=== PATIENT | female | born 1990 | race Caucasian/White ===

== ENCOUNTER → 2020-02-09 14:24 | Outpatient (CLI) | payer BC, SELFPAY | PROVIDERS: Visit Provider Advanced Practice Midwife | DX: Z03.818 Encounter for observation for suspected exposure to other biological agents ruled out (principal); R51.9 Headache, unspecified; R09.81 Nasal congestion | CPT/HCPCS: 87275; 87276; U0003 ==

== ENCOUNTER → 2021-04-07 19:16 | Outpatient (CLI) | payer BC, SELFPAY ==
[2021-04-07 19:19] LABS: Adenovirus,PCR Not Detected (NotDetected); Bordetella Pertussis Not Detected (NotDetected); Chlamydophila Pneumoniae, PCR Not Detected (NotDetected); Coronavirus 19, PCR Not Detected (NotDetected); Coronavirus 229E Not Detected (NotDetected); Coronavirus NL63 Not Detected (NotDetected); Coronavirus OC43 Not Detected (NotDetected); Coronovirus HKU1,PCR Not Detected (NotDetected); Human Metapneumovirus Not Detected (NotDetected); Influenza A, PCR Not Detected (NotDetected); Influenza AH1, 2009 Not Detected (NotDetected); Influenza AH1, PCR Not Detected (NotDetected); Influenza AH3,PCR Not Detected (NotDetected); Influenza B, PCR Not Detected (NotDetected); Mycoplasma Pneumoniae, PCR Not Detected (NotDetected); Parainfluenza 1, PCR Not Detected (NotDetected); Parainfluenza 2, PCR Not Detected (NotDetected); Parainfluenza 3, PCR Not Detected (NotDetected); Parainfluenza 4, PCR Not Detected (NotDetected); Respiratory Syncytial Virus Not Detected (NotDetected)
[2021-04-07 22:01] LABS: Rhinovirus/Enterovirus Detected (NotDetected)
== END ==
PROVIDERS: Visit Provider Nurse Practitioner Family
DX: Z20.822 Contact with and (suspected) exposure to COVID-19 (principal); B34.1 Enterovirus infection, unspecified; R50.9 Fever, unspecified; R51.9 Headache, unspecified
CPT/HCPCS: 87581; 87632; 87798; C9803; U0003; U0005

== ENCOUNTER → 2021-05-06 09:19 | Outpatient (CLI) | payer BC, SELFPAY | PROVIDERS: Visit Provider Nurse Practitioner | DX: U07.1 COVID-19 (principal) | CPT/HCPCS: C9803; U0003; U0005 ==

== ENCOUNTER → 2021-05-12 15:51 | Outpatient (CLI) | payer BC, SELFPAY | PROVIDERS: Visit Provider Nurse Practitioner | DX: U07.1 COVID-19 (principal) | CPT/HCPCS: C9803; U0003; U0005 ==

== ENCOUNTER 2021-08-23 16:30 | Outpatient (RCR) | payer BC, SELFPAY ==
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
== END 2021-09-14 09:41 | disposition home or self-care (01) ==
LOC: PT.CARL 16:30
PROVIDERS: PCP Nurse Practitioner Family; Visit Provider Nurse Practitioner Family
DX: M25.50 Pain in unspecified joint (principal); M51.36 Other intervertebral disc degeneration, lumbar region
CPT/HCPCS: 97010; 97014; 97110; 97140; 97163; G0283

== ENCOUNTER 2024-07-15 13:05 | Outpatient (CLI) | payer BC, SELFPAY | END 2024-07-15 23:59 | disposition home or self-care (01) | LOC: RT 13:06 | PROVIDERS: PCP Nurse Practitioner Family; Visit Provider Nurse Practitioner Family | DX: R00.2 Palpitations (principal) | CPT/HCPCS: 93225; 93226 ==

== ENCOUNTER → 2024-08-11 10:05 | Outpatient (CLI) | payer BC, SELFPAY | LOC: SL 10:06 | PROVIDERS: PCP Nurse Practitioner Family; Visit Provider Nurse Practitioner Family | DX: G47.33 Obstructive sleep apnea (adult) (pediatric) (principal); R06.83 Snoring; G47.10 Hypersomnia, unspecified; E66.9 Obesity, unspecified; Z68.32 Body mass index [BMI] 32.0-32.9, adult | CPT/HCPCS: G0399 ==

== ENCOUNTER 2025-01-26 09:24 | Outpatient (CLI) | payer BC, SELFPAY ==
--- OUTSIDE RECORDS SUMMARY | 2025-01-26 09:28 | XMS_ITS | Encounter Summary ---
Author Organization [facility] Address [address] [place] [address] Care Team Providers Care Junior Systems Engineer Name Role Phone Carol Palomares LALIT Primary Care Provider [phone]- [phone] Reason for Referral * Consultation (Routine) - Authorized Specialty Diagnoses / Procedures Referred By Cindy bird Referred To Contact Gastroenterology Diagnoses Anemia, unspecified type Blood in stool Betty Amaro APRN [address] [address] Phone: tel: fax: Referral ID Status Reason Start Date Expiration Date Visits Requested Visits Authorized [id number] Authorized Specialty Services Required 08/15/2024 02/14/2026 1 1 Encounter Details Date Type Department Care Team (Late st Contact Info) Description 08/15/2024 Community Orders Community Practice [address] [place] [address] Betty Amaro APRN [address] [place] [address] Anemia, unspecified type (Primary Dx); Blood in stool Social History Tobacco Use Types Packs/Day Years Used Date Smoking Tobacco: Never Smokeless Tobacco: Never Alcohol Use Standard Drinks/Week Comments No 0 (1 standard drink = 0.6 oz pur e alcohol) PHQ-2 Answer Date Recorded Patient Health Questionnaire-2 Score 2 08/19/2021 Education Answer Date Recorded What is the highest level of school you have completed or the highest degree you have received? 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 Not on file Not on file Not on file documented as of this encounter Plan of Treatment Scheduled Referrals Name Type Priority Associated Diagnoses Order Schedule Ambulatory referral to Gastroenterology Outpatient Referral Routine Anemia, unspecified type Blood in stool Expected: 08/22/2024, Expires: 02/15/2026 documented as of this encounter Visit Diagnoses Diagnosis Anemia, unspecified type- Primary Blood in stool documented in this encounter Additional Health Concerns Assessment Noted Time A fall risk assessment has been complete d for the patient 08/19/2021 9:25 AM EDT A Body Mass Index follow-up plan has been documented for the patient 10/24/2023 4:45 PM EDT documented as of this encounter Care Teams Junior Systems Engineer Relationship Specialty Start Date End Date Carol Palomares APRN [address] [facility] [address] [facility] [address] [place] [address] PCP - General 06/14/21 documented as of this encounter
--- OUTSIDE RECORDS SUMMARY | 2025-01-26 09:28 | XMS_ITS | Encounter Summary ---
Author Organization [facility] Address [address] [place] [address] Care Team Providers Care Order Fulfillment Specialist Name Role Phone Carol Palomares APRN Primary Care Provider [phone]- [phone] Reason for Referral * Consultation (Routine) - Closed Specialty Diagnoses / Procedures Referred By Cindy bird Referred To Contact Gastroenterology Diagnoses Bloody stool Carol Palomares, HEALTH FACILITIES SURVEYOR [address] [address] Phone: tel: fax: Referral ID Status Reason Start Date Expiration Date V isits Requested Visits Authorized [id number] Closed Specialty Services Required 08/02/2021 02/01/2023 1 1 Encounter Details Date Type Department Care Team (Late st Contact Info) Description 08/02/2021 Community [facility] Community Practice [address] [place] [address] Carol Palomares, HEALTH FACILITIES SURVEYOR [address] [address] Bloody stool (Primary Dx) Social History Tobacco Use Types Packs/Day Years Used Date Smoking Tobacco: Never Smokeless Tobacco: Never Alcohol Use Standard Drinks/Week Comments No 0 (1 standard drink = 0.6 oz pur e alcohol) Education Answer Date Recorded What is the [...] 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 No / Unsure 07/07/2021 11:55 AM EDT documented as of this encounter Plan of Treatment Scheduled Referrals Name Type Priority Associated Diagnoses Order Schedule Ambulatory referral to Gastroenterology Outpatient Referral Routine Bloody stool Expected: 08/02/2021 (Approximate), Expires: 02/01/2023 documented as of this encounter Visit Diagnoses Diagnosis Bloody stool- Primary Blood in stool documented in this encounter Additional Health Concerns Assessment Noted Time A fall risk assessment has been complete d for the patient 07/08/2021 8:45 AM EDT documented as of this encounter Care Teams Order Fulfillment Specialist Relationship Specialty Start Date End Date Carol Palomares APRN [address] [facility] 36 [facility] [address] [place], [place] [id number] PCP - General 06/14/21 documented as of this encounter
--- OUTSIDE RECORDS SUMMARY | 2025-01-26 09:28 | XMS_ITS | Clinical Summary ---
Author Organization [facility] Address [address] [place] [address] Care Team Providers Care Environmental Professional Name Role Phone Carol Palomares LALIT Primary Care Provider +1- [phone] Allergies No known active allergies Medications * This document contains information received from the source organization and may not represent a complete record from that organization. fluticasone (Flonase) 50 MCG/ACT nasal spray if needed. 3 Active ketoconazole (NIZOral) 2 % shampoo 3 Active ketoconazole (NIZOral) 2 % cream Apply topically if needed. 3 Active cetirizine (ZyrTEC) 10 MG tablet Take by mouth if needed. 3 Active famotidine (Pepcid) 20 MG tablet 3 Active levocetirizine (Xyzal Allergy 24HR) 5 MG tablet Take 1 tablet (5 mg) by mouth 1 (one) time each day in the evening. Active ondansetron ODT (Zofran-ODT) 4 MG disintegrating tablet Take 1 tablet (4 mg) by mouth every 8 (eight) hours if needed for nausea or vomiting. 20 tablet 4 Active Active Problems Problem Noted Date Diagnosed Date Class 1 obesity due to exces s calories without serious comorbidity with body mass index (BMI) of 33.0 to 33.9 in adult 10/15/2023 Hypertrophy of both inferior nasal turbinates Obesity in 08/05/2020 Abnormal glucose 07/09/2020 Rectocele affecting 01/21/2020 Resolved Problems Problem Noted Date Diagnosed Date Resolved Date Chronic sinusitis 10/15/2023 01/04/2025 and not yet deliver ed in third trimester 09/25/2020 09/27/2020 Encounter for supervision of normal 02/10/2009/27/2020 Immunizations Immunization Administration Dates Next Due Hep A, Unspecified 2019,02/23/2018 Hep B, adult 01/02/2001,09/28/2000,08/29/2000 Influenza, Unspecified 02/03/2020,2018,02/08/2018,2015,02/02/2015 Influenza, injectable, quadr ivalent, preservative free 02/07/2023,12/27/2021,01/19/2021 MMR 08/29/2000,05/27/1990 Pfizer-[employer] Services (EPS) COVID-19 Vac cine (Purple Cap) 12+ 01/12/2021,12/17/2020 Tdap 07/09/2020,11/15/2013 Family History Medical History Relation Name Comments Hypertension Father Hypertension Mother Anesthesia problems Neg Hx Malig Hyperthermia Neg Hx Relation Name Status Comments Father Mother Social History Tobacco Use Types Packs/Day Years Used Date Smoking Tobacco: Never Smokeless Tobacco: Never Tobacco Cessation:Counseling Given: Not Answered Alcohol Use Standard Drinks/Week Comments No 0 [...] Industry Job Start Date Job End Date [employer] Not on file Not on file Not on file Last Filed Vital Signs Vital Sign Reading Time Taken Comments Blood Pressure 126/85 08/02/2024 11:43 PM EDT Pulse 73 08/02/2024 11:43 PM EDT Temperature 36.8 C (98.3 F) 08/02/2024 11:43 PM EDT Respiratory Rate 18 08/02/2024 4:02 PM EDT Oxygen Saturation 97% 08/02/2024 11:43 PM EDT Inhaled Oxygen Concentration - - Weight 105 kg (231 lb) 08/02/2024 5:54 PM EDT Height 177.8 cm (5' 10 ) 10/16/2023 6:07 AM EDT Body Mass Index 33.15 10/16/2023 6:07 AM EDT Plan of Treatment Health Maintenance Due Date Last Done Comments [facility]-/Child/Adol SDOH Screenings 1989 [facility]-Varicella Vaccines (1 of 2 - 13+ 2-dose series) 2002 [facility]- SDOH Screenings 2007 [facility]-Adult SDOH Screenings 2007 HPV Vaccines (1 - 3-dose SCDM series) 02/11/2016 [facility]-Depression Screening 08/19/2022 08/19/2021 [facility]-Pap Smear 12/18/2023 12/17/2020 [id number] Vaccine (3 - 2024- season) 2024 01/12/2021, 12/17/2020 [facility]-Influenza Vaccine (#1) 12/15/202402/07, 12/27/2021, 01/19/2021, Additional history exists [facility]-Cervical Cancer Screening 12/17/2025 [facility]-HPV/Cotest 12/17/2025 12/17/2020, 12/17/2020 [facility]-DTaP,Tdap,and Td Vaccines (3 - Td or Tdap) 07/09/2030 07/09/2020, 11/15/2013 [facility]-Zoster Vaccines (1 of 2) 2039 [facility]-Hepatitis B Vaccines Completed 001, 09/28/2000, 08/29/2000 [facility]-Hepatitis A Vaccines Aged Out 2019, 02/14 No longer eligible based on patient's age to complete this topic [facility]-HIV Screening Completed 2020 [facility]-Hepatitis C Screening Completed 2020 [facility]-Obesity Intervention Completed 024, 05/25/2023, 02/20/2023, Additional history exists [facility]-HIB Vaccines Aged Out No longer e ligible based on patient's age to complete this topic [facility]-IPV Vaccines Aged Out No longer e ligible based on patient's age to complete this topic [facility]-Pneumococcal Vaccine: Pediatrics (0 to 5 Years) and At-Risk Patients (6 to 49 Years) Aged Out No longer eligible based on patient's age to complete this topic [facility]-Rotavirus Vaccines Aged Out No lo nger eligible based on patient's age to complete this topic Procedures Procedure Name Priority Date/Time Associated Diagnosis Comments PAP TEST - CYTOLOGY Routine 12/17/2020 1 0:42 AM EDT Healthcare maintenance HEPATITIS C ANTIBODY W/REFLEX TO HCV QUANT PCR Routine 2020 12:36 PM EDT HIV 1/2 ANTIBODY/ANTIGEN SCREEN WITH REFLEX TO HIV I/II DIFFERENTIATION Routine 2020 12:36 PM EDT from Last 3 Months or Most Recently Relevant to Health Maintenance Results * Pap Test (12/17/2020 10:42 AM EDT) Case Report Cytology Case: [id number] Authorizing Provider: Adry Barbosa CNM Collected: 12/17/2020 1042 Ordering Location: [facility] Received: 12/21/2020 1118 First Screen: ALFREDO Valdovinos Specimen: ThinPrep Pap Test, Liquid-Based Cervical/Vaginal, CERVICAL/VAGINAL 12/27/2020 2:44 PM EDT [facility] Interpretation NEGATIVE FOR INTRAEPITHELIAL LESION OR MALIGNANCY 12/27/2020 2:44 PM EDT [facility] at 1444 EDT Specimen Adequacy Satisfactory for evaluation; endocervical/dean sformation zone component present. Slide scanned and imaged by [employer] System with manual review of all selected boateng. 12/27/2020 2:44 PM EDT [facility] Cervical cytology is a screening test primarily for squamous cancers and precursors and has associated false negative and positive results. New technologies such as liquid based sampling may decrease but will not eliminate all false negative results. Regular screening and follow-up of unexplained clinical signs and symptoms are recommended to minimize false negative results. Please see the ASCCP website (www.asccp.org)fo r followup recommendations. If HPV testing was requested, correlation with the results is suggested (please call Microbiology at [phone] for results). 12/27/2020 2:44 PM EDT [facility] Menstrual Status Post- 021 2:44 PM EDT [facility] Contraceptive History Not Applicable 12/27/2020 2:44 PM EDT [facility] Last Menstrual Period 11/16/2020 12/27/2020 2:44 PM EDT [facility] Screening Type Routine Screen 2020 2:44 PM EDT [facility] High Risk? No 12/27/2020 2:44 PM EDT [facility] HPV Testing Requested? Request HPV Testing Regardless of Pap Test Findings 12/27/2020 2:44 PM EDT [facility] Previous Cancer History No 12/27/2020 2:44 PM EDT [facility] Swab Vaginal and cervical cytologic material / Unknown 12/17/2020 10:42 AM EDT 12/21/2020 11:18 AM EDT Adry Barbosa APRN, DINORAH LAB CYTOLOGY ORDERABLE S Final Result Performing Organization Address City/[facility]/ZIP Co de Phone Number [facility] [address] [place] [address] * HIV 1 & 2 Antibody/Antigen Screen (2020 12:36 PM EDT) Pathologist [facility] HIV 1 Result NONREACTIVE Screening for HIV 1 and 2 antibodies is NONREACTIVE. No confirmatory testing is required. [facility] 2020 12:3 6 PM EDT 2020 5:25 PM EDT Lizette Nuñez APRN, CNM LAB BLOOD ORDERABLES Final Result [facility] * Hepatitis C Antibody (2020 12:36 PM EDT) Hepatitis C Antibody NEGATIVE Reference Range: Negative [facility] 2020 12:3 6 PM EDT 2020 5:25 PM EDT Lizette Nuñez APRN, DINORAH LAB BLOOD ORDERABLES Final Result [facility] from Last 3 Months or Most Recently Relevant to Health Maintenance Insurance ANTH Advance Directives * Full Code (Latest Code Status on File) Date Activated Date Inactivated Comments 09/25/2020 8:27 AM 09/27/2020 4:24 PM Question Answer Comments Patient has decision-making capacity? Yes Care Teams Environmental Professional Relationship Specialty Start Date End Date Carol Palomares APRN [address] [place] [address] PCP - General 06/14/21
--- OUTSIDE RECORDS SUMMARY | 2025-01-26 09:29 | XMS_ITS | Patient Health Record ---
Author Organization [facility] PE D NEELAM Address [address] [place] [address] Care Team Providers Care Property Site Manager Name Role Phone Betty Livingston Primary Care Provider Migration, Provider Unavailable Unavailable Allergies No Known Allergies Results Component Value Reference Range Notes TEST AUTHORIZATION Reviewed date:07/18/2024 02:50:18 PM Interpretation: Performing Lab:CB, [facility] [address], [facility] HealthNzxfAP[address] Mina Cortes Notes/Report: NON-FASTING; NON-FASTING; NON-FASTING; NON-FASTING; NON-FAST TEST NAME: IRON, TIBC AND FERRITIN PANEL TEST CODE: 5616SB CLIENT CONTACT: BETTY LIVINGSTON REPORT ALWAYS MESSAGE SIGNATURE The laboratory testing on this patient was verbally requested or confirmed by the ordering physician or his or her authorized sales representative meats after contact with an employee of [facility]. Federal regulations require that we maintain on file written authorization for all laboratory testing. Accordingly we are asking that the ordering physician or his or her authorized sales representative meats sign a copy of this report and promptly return it to the client account manager. Signature: COMMENT Please fax this signed form to [phone]. Please do not attempt to return this document by other methods. Documents will not be viewed by a sales representative meats. Please do not use this fax number for other service requests. TSH (899) Reviewed date:12/03/2024 12:26:28 PM Interpretation: Performing Lab:S[facility] [employer], [facility] HealthClrrME[address] Mina Cortes Notes/Report: NON-FASTING; NON-FASTING; NON-FASTING; NON-FASTING; NON-FAST TSH 1.41 Reference Range > or = 20 Years 0.40-4.50 Ranges First trimester 0.26-2.66 Second trimester 0.55-2.73 Third trimester 0.43-2.91 C-REACTIVE PROTEIN (4420) Reviewed date:12/03/2024 12:26:22 PM Interpretation: Performing Lab:[facility] [employer], [place] FfndTA[address] Mina Cortes Notes/Report: NON-FASTING; NON-FASTING; NON-FASTING; NON-FASTING; NON-FAST C-REACTIVE PROTEIN 8.9 <8.0 mg/L SED RATE BY MODIFIED WESTERG ARGENIS (809) Reviewed date:12/03/2024 12:18:35 PM Interpretation: Performing Lab:[facility] [employer], [facility] CenterTvlgQL[address] Mina Cortes Notes/Report: NON-FASTING; NON-FASTING; NON-FASTING; NON-FASTING; NON-FAST SED RATE BY MODIFIED WESTERGREN 17 < OR = 20 mm/h CBC (INCLUDES DIFF/PLT) (639 9) Reviewed date:08/15/2024 12:51:28 PM Interpretation: Performing Lab:[facility], [facility]edUuzwXA[address] Mina Cortes Notes/Report: NON-FASTING; NON-FASTING; NON-FASTING WHITE BLOOD CELL COUNT 6.7 3.8-10.8 Thousand/uL RED BLOOD CELL COUNT 5.27 3.80-5.10 Million/uL HEMOGLOBIN 11.6 11.7-15.5 g/dL HEMATOCRIT 39.6 35.0-45.0 % MCV 75.1 80.0-100.0 fL MCH 22.0 27.0-33.0 pg MCHC 29.3 32.0-36.0 g/dL For adults, a slight decrease in the calculated MCHC value (in the range of 30 to 32 g/dL) is most likely not clinically significant; however, it should be interpreted with caution in correlation with other red cell parameters and the patient's clinical condition. RDW 17.6 11.0-15.0 % PLATELET COUNT 332 140-400 Thousand/uL MPV 11.4 7.5-12.5 fL ABSOLUTE NEUTROPHILS [phone] cells/uL ABSOLUTE LYMPHOCYTES 7717 044-4004 cells/uL ABSOLUTE MONOCYTES 268 200-950 cells/uL ABSOLUTE EOSINOPHILS 201 15-500 cells/uL ABSOLUTE BASOPHILS 27 0-200 cells/uL NEUTROPHILS 69.8 LYMPHOCYTES 22.8 MONOCYTES 4.0 EOSINOPHILS 3.0 BASOPHILS 0.4 CBC (INCLUDES DIFF/PLT) (639 9) Reviewed date:12/03/2024 12:23:13 PM Interpretation: Performing Lab:CB, [facility] [address], [facility] HealthCbyvGI[address] Mina Cortes Notes/Report: NON-FASTING; NON-FASTING; NON-FASTING; NON-FASTING; NON-FAST WHITE BLOOD CELL COUNT 6.4 3.8-10.8 Thousand/uL RED BLOOD CELL COUNT 5.03 3.80-5.10 Million/uL HEMOGLOBIN 11.9 11.7-15.5 g/dL HEMATOCRIT 40.2 35.0-45.0 % MCV 79.9 80.0-100.0 fL MCH 23.7 27.0-33.0 pg MCHC 29.6 32.0-36.0 g/dL For adults, a slight decrease in the calculated MCHC value (in the range of 30 to 32 g/dL) is most likely interpreted with caution in correlation with other red cell parameters and the patient's clinical condition. not clinically significant; however, it should be RDW 14.5 11.0-15.0 % PLATELET COUNT 283 140-400 Thousand/uL MPV 11.0 7.5-12.5 fL ABSOLUTE NEUTROPHILS 4134 2279-3481 cells/uL ABSOLUTE LYMPHOCYTES 2831 920-9628 cells/uL ABSOLUTE MONOCYTES 339 200-950 cells/uL ABSOLUTE EOSINOPHILS 147 15-500 cells/uL ABSOLUTE BASOPHILS 32 0-200 cells/uL NEUTROPHILS 64.6 LYMPHOCYTES 27.3 MONOCYTES 5.3 EOSINOPHILS 2.3 BASOPHILS 0.5 IRON AND TOTAL IRON BINDING CAPACITY (7573) Reviewed date:12/03/2024 12:18:45 PM Interpretation: Performing Lab:SANG [facility] [employer], [place] OijyZV[address] Mina Cortes Notes/Report: NON-FASTING; NON-FASTING; NON-FASTING; NON-FASTING; NON-FAST IRON, TOTAL 35 40-190 mcg/dL IRON BINDING CAPACITY 402 250-450 mc g/dL (calc) % SATURATION 9 16-45 % (calc) COMPREHENSIVE METABOLIC PANE L (90624) Reviewed date:12/03/2024 12:25:21 PM Interpretation: Performing Lab:SANG [facility] [employer], QuantifeedOliiCB[address] Mina Cortes Notes/Report: NON-FASTING; NON-FASTING; NON-FASTING; NON-FASTING; NON-FAST GLUCOSE 85 65-99 mg/dL Fasting reference interval UREA NITROGEN (BUN) 14 7-25 mg/dL CREATININE 0.85 0.50-0.97 mg/dL EGFR 92 > OR = 60 mL/min/1.73m2 BUN/CREATININE RATIO SEE NOTE: 6-22 (calc) Not Reported: BUN and Creatinine are within reference range. SODIUM 141 135-146 mmol/L POTASSIUM 4.0 3.5-5.3 mmol/L CHLORIDE 104 98-110 mmol/L CARBON DIOXIDE 27 20-32 mmol/L CALCIUM 9.6 8.6-10.2 mg/dL PROTEIN, TOTAL 7.7 6.1-8.1 g/dL ALBUMIN 4.5 3.6-5.1 g/dL GLOBULIN 3.2 1.9-3.7 g/dL (calc) ALBUMIN/GLOBULIN RATIO 1.4 1.0-2.5 (calc) BILIRUBIN, TOTAL 0.3 0.2-1.2 mg/dL ALKALINE PHOSPHATASE 94 31-125 U/L AST 12 10-30 U/L ALT 14 6-29 U/L COMPREHENSIVE METABOLIC PANE L (92939) Reviewed date:08/15/2024 12:51:34 PM Interpretation: Performing Lab:S[facility] [employer] [facility], QuantifeedOforFA[address] Mina Cortes Notes/Report: NON-FASTING; NON-FASTING; NON-FASTING GLUCOSE 88 65-99 mg/dL Fasting referen ce interval UREA NITROGEN (BUN) 14 7-25 mg/dL CREATININE 0.82 0.50-0.97 mg/dL EGFR 96 > OR = 60 mL/min/1.73m2 BUN/CREATININE RATIO SEE NOTE: 6-22 (calc) Not Reported: BUN and Creatinine are within reference range. SODIUM 139 135-146 mmol/L POTASSIUM 4.3 3.5-5.3 mmol/L CHLORIDE 104 98-110 mmol/L CARBON DIOXIDE 25 20-32 mmol/L CALCIUM 9.7 8.6-10.2 mg/dL PROTEIN, TOTAL 8.2 6.1-8.1 g/dL ALBUMIN 4.7 3.6-5.1 g/dL GLOBULIN 3.5 1.9-3.7 g/dL (calc) ALBUMIN/GLOBULIN RATIO 1.3 1.0-2.5 (calc) BILIRUBIN, TOTAL 0.4 0.2-1.2 mg/dL ALKALINE PHOSPHATASE 95 31-125 U/L AST 15 10-30 U/L ALT 14 6-29 U/L IRON, TIBC AND FERRITIN PANE L (5616) Reviewed date:08/15/2024 12:51:22 PM Interpretation: Performing Lab:[facility] [employer], [employer] DirectJmycWU[address] Mina Cortes Notes/Report: NON-FASTING; NON-FASTING; NON-FASTING IRON, TOTAL 39 40-190 mcg/dL IRON BINDING CAPACITY 417 250-450 mc g/dL (calc) % SATURATION 9 16-45 % (calc) FERRITIN 12 16-154 ng/mL IRON, TIBC AND FERRITIN PANE L (5616) Reviewed date:07/18/2024 02:50:18 PM Interpretation: Performing Lab:SANG [address] [employer], [employer] DirectEbqzQW[address] Mina Cortes Notes/Report: NON-FASTING; NON-FASTING; NON-FASTING; NON-FASTING; NON-FAST IRON, TOTAL 20 40-190 mcg/dL IRON BINDING CAPACITY 444 250-450 mc g/dL (calc) % SATURATION 5 16-45 % (calc) FERRITIN 5 16-154 ng/mL MISAEL SCR, IFA, W/REFL TITER/P ATTERN/RHEUMATOID ARTHRITIS PANEL 1 (77986) Reviewed date:12/03/2024 12:18:52 PM Interpretation: Performing Lab:Debbie DOMÍNGUEZ-[facility] [address] BlShahbazCrafKE[address] Mina Cortes Notes/Report: NON-FASTING; NON-FASTING; NON-FASTING; NON-FASTING; NON-FAST MISAEL SCREEN, IFA NEGATIVE NEGATIVE MISAEL IFA is a first line screen for detecting the presence of up to approximately 150 autoantibodies in various autoimmune diseases. A negative MISAEL IFA result suggests an MISAEL-associated autoimmune disease is not present at this time, but is not definitive. If there is high clinical suspicion for Sjogren's syndrome, testing for anti-SS-A/Ro antibody should be considered. Anti-Sadaf-1 antibody should be considered for clinically suspected inflammatory myopathies. AC-0: Negative International Consensus on MISAEL Patterns (https://doi.org/10.1515/ iyfo-4127-8150) For additional information, please refer to http://education.C2FO/faq/HAN088 (This link is being provided for informational/ educational purposes only.) RHEUMATOID FACTOR <10 <14 IU/mL CYCLIC CITRULLINATED PEPTIDE (CCP) AB (IGG) <16 Reference Range Negative: <20 Weak Positive: 20-39 Moderate Positive: 40-59 Strong Positive: >59 INTERPRETATION 65-70%. There is no serologic evidence for rheumatoid arthritis. The RF and CCP tests each have a sensitivity for established rheumatoid arthritis of approximately THINPREP-TIS (REFL) (50193) Reviewed date:12/03/2024 12:18:40 PM Interpretation: Performing Lab:Debbie TOURE-[address], DmcckcnttxMO[address] Mina Cortes Notes/Report: NON-FASTING CLINICAL INFORMATION: Normal exam LMP: NONE GIVEN PREV. PAP: NONE GIVEN PREV. BX: NONE GIVEN SOURCE: Vagina, Cervix STATEMENT OF ADEQUACY: Satisfactory for evaluation. Endocervical/transformati on zone component absent. Age and/or menstrual status not provided INTERPRETATION/RESULT: Cytology Results: Negative for intraepithelial lesion or malignancy. COMMENT: This Pap test has been evaluated with the Aztec GroupPrep(R) Imaging System. M[employer] SALES: MXD, CT(ASCP) CT Screening location: [address] [address] CLIA:[id number] COMMENT EXPLANATORY NOTE: The Pap is a screening test for cervical cancer. It is not a diagnostic test and is subject to false negative and false positive results. It is most reliable when a satisfactory sample, regularly obtained, is submitted with relevant clinical findings and history, and when the Pap result is evaluated along with historic and current clinical information. VITAMIN D,25-OH,TOTAL,IA (17 306) Reviewed date:07/17/2024 01:29:11 PM Interpretation: Performing Lab:SANG [address] [facility], [place] SuspUP[address] Mina Cortes Notes/Report: NON-FASTING; NON-FASTING; NON-FASTING; NON-FASTING; NON-FAST VITAMIN D,25-OH,TOTAL,IA 21 30-100 ng/mL Vitamin D Status 25-OH Vitamin D: Deficiency: <20 ng/mL Insufficiency: 20 - 29 ng/mL Optimal: > or = 30 ng/mL For 25-OH Vitamin D testing on patients on D2-supplementation and patients for whom quantitation of D2 and D3 fractions is required, the QuestAssureD(TM) 25-OH VIT D, (D2,D3), LC/MS/MS is recommended: order code 75799 (patients >2yrs). See Note 1 Note 1 For additional information, please refer to http://education.C2FO/faq/KSK493 (This link is being provided for informational/ educational purposes only.) TSH (899) Reviewed date:07/17/2024 01:29:11 PM Interpretation: Performing Lab:SANG [address] [employer] [facility], [place] XqidAE[address] Mina Cortes Notes/Report: NON-FASTING; NON-FASTING; NON-FASTING; NON-FASTING; NON-FAST TSH 2.37 Reference Range > or = 20 Years 0.40-4.50 Ranges First trimester 0.26-2.66 Second trimester 0.55-2.73 Third trimester 0.43-2.91 VITAMIN B12 (927) Reviewed date:07/17/2024 01:29:11 PM Interpretation: Performing Lab:SANG [address], [employer] DirectHypqBZ[address] Mina Cortes Notes/Report: NON-FASTING; NON-FASTING; NON-FASTING; NON-FASTING; NON-FAST VITAMIN B12 926 612-0790 pg/mL Please Note: Although the reference range for vitamin B12 is 200-1100 pg/mL, it has been reported that between 5 and 10% of patients with values between 200 and 400 pg/mL may experience neuropsychiatric and hematologic abnormalities due to occult B12 deficiency; less than 1% of patients with values above 400 pg/mL will have symptoms. CBC (INCLUDES DIFF/PLT) (639 9) Reviewed date:07/17/2024 01:29:11 PM Interpretation: Performing Lab:SANG [facility], [employer] DirectLdmhUJ[address] Mina Cortes Notes/Report: NON-FASTING; NON-FASTING; NON-FASTING; NON-FASTING; NON-FAST WHITE BLOOD CELL COUNT 5.6 3.8-10.8 Thousand/uL RED BLOOD CELL COUNT 5.11 3.80-5.10 Million/uL HEMOGLOBIN 11.2 11.7-15.5 g/dL HEMATOCRIT 35.8 35.0-45.0 % MCV 70.1 80.0-100.0 fL MCH 21.9 27.0-33.0 pg MCHC 31.3 32.0-36.0 g/dL For adults, a slight decrease in the calculated MCHC value (in the range of 30 to 32 g/dL) is most likely not clinically significant; however, it should be interpreted with caution in correlation with other red cell parameters and the patient's clinical condition. RDW 15.5 11.0-15.0 % PLATELET COUNT 306 140-400 Thousand/uL MPV 11.6 7.5-12.5 fL ABSOLUTE NEUTROPHILS 3970 7191-0582 cells/uL ABSOLUTE LYMPHOCYTES 8193 948-0252 cells/uL ABSOLUTE MONOCYTES 426 200-950 cells/uL ABSOLUTE EOSINOPHILS 123 15-500 cells/uL ABSOLUTE BASOPHILS 22 0-200 cells/uL NEUTROPHILS 70.9 LYMPHOCYTES 18.9 MONOCYTES 7.6 EOSINOPHILS 2.2 BASOPHILS 0.4 MAGNESIUM (622) Reviewed date:07/18/2024 02:50:18 PM Interpretation: Performing Lab:SANG Com[address] [facility], [facility] CenterExmaAN[address] Mina Cortes Notes/Report: NON-FASTING; NON-FASTING; NON-FASTING; NON-FASTING; NON-FAST MAGNESIUM 2.2 1.5-2.5 mg/dL COMPREHENSIVE METABOLIC PANE L (34059) Reviewed date:07/18/2024 02:50:18 PM Interpretation: Performing Lab:CB, [facility] [facility], [facility] CenterQdpnST[address] Mina Cortes Notes/Report: NON-FASTING; NON-FASTING; NON-FASTING; NON-FASTING; NON-FAST GLUCOSE 99 65-99 mg/dL Fasting reference interval UREA NITROGEN (BUN) 11 7-25 mg/dL CREATININE 0.82 0.50-0.97 mg/dL EGFR 96 > OR = 60 mL/min/1.73m2 BUN/CREATININE RATIO SEE NOTE: 6-22 (calc) Not Reported: BUN and Creatinine are within reference range. SODIUM 140 135-146 mmol/L POTASSIUM 4.0 3.5-5.3 mmol/L CHLORIDE 104 98-110 mmol/L CARBON DIOXIDE 27 20-32 mmol/L CALCIUM 9.4 8.6-10.2 mg/dL PROTEIN, TOTAL 7.9 6.1-8.1 g/dL ALBUMIN 4.4 3.6-5.1 g/dL GLOBULIN 3.5 1.9-3.7 g/dL (calc) ALBUMIN/GLOBULIN RATIO 1.3 1.0-2.5 (calc) BILIRUBIN, TOTAL 0.3 0.2-1.2 mg/dL ALKALINE PHOSPHATASE 110 31-125 U/L AST 16 10-30 U/L ALT 13 6-29 U/L occult blood Reviewed date:08/15/2024 12:51:17 PM Interpretation:Positive Performing Lab: Notes/Report: Positive Holter Monitor, 48 hour Reviewed date:07/30/2024 10:06:15 AM Interpretation: Performing Lab: Notes/Report: Reason For Referral Reason Home sleep study Diagnosis 1 Snoring (R06.83) Referral Organization [facility] Referring Provider First Name Betty Referring Provider Last Name Nunu Referring Provider Speciality Family Pra ctice Referred Organization [facility] Referred Address [address] [address] [place], [place],[address], Referred Provider Specialty Sleep Study General Notes Maggy Gonzalez 2024 02:39:33 PM >sent to Kayla Borrero to precert at [facility] Referral Priority Routine Reason Referral to Gastro- positive occult blood Referral Organization [facility] Referring Provider First Name Betty Referring Provider Last Name Nunu Referring Provider [facility] ctice Referred Organization [facility] Referred Address [address] [place] [address] ,[place], [place],[address],[place] Referred Provider Specialty Gastroentero logy General Notes Maggy Gonzalez 2024 10:57:54 AM >sent to [facility] and Dr. Garnica, Maggy Gonzalez 09/15/2024 03:22:46 PM >sent again to [facility] Referral Priority Routine Reason Dr. Sly MOMIN Referral Organization [facility] Referring Provider First Name Betty Referring Provider Last Name Nunu Referring Provider [facility] ctice Referred Organization [facility] Referred Address [address] [facility] [address] [place], [place],[address],[place] Referred Provider Specialty Hematology/O ncology General Notes Maggy Gonzalez 2024 12:30:05 PM >Sent to [facility] Dr. Heart Referral Priority Routine Medications Medication SIG (Take, Route, Frequency, Duration) Notes Start Date End Date Status Ferrous Sulfate 325 (65 Fe) MG 1 tab(s) orally once a day; Duration: 30 days 07/18/2024 Active Social History Tobacco Use: Social History Observation Description Date Details (start date - stop date) Never Smoker NA - NA Smoking: Question Answer Notes Are you a: nonsmoker Problems Problem Type SNOMED Code ICD Code Onset Dates Problem Status W/U Status Risk Notes Problem Anxiety (24872865) Anxiety (F41.9) Active confi rmed Problem Vitamin D deficiency (06572932) Vitamin D deficiency (E55.9) Active confirmed Problem Psoriasis (0251640) Psoriasis (L40.9) Active confirmed Problem Body mass index 30.00 to 34.99 (309354705378295) BMI 31.0-31.9,adult (Z68.31) Active confirmed Problem BMI 30+ - obesity (590527233) BMI 32.0-32.9,adult (Z68.32) Active confirmed Problem Idiopathic sleep related non-obstructive alveolar hypoventilation (012782555) Nocturnal hypoxia (G47.34) Active confirmed Problem Iron deficiency anemia (73485262) Iron deficiency anemia, unspecified iron deficiency anemia type (D50.9) Active confirmed Problem Degeneration of lumbar intervertebral disc (64823864) Lumbar degenerative disc disease (M51.36) Active confirmed Problem Anxiety (05411429) Situational anxiety (F41.8) Active confirmed Problem Pain due to varicose veins of lower extremity (215229539) Varicose veins of both lower extremities with pain (I83.813) Active confirmed Vital Signs Heart Rate 82 /min 11/28/2024 Temperature 98 degrees Fahrenheit 11/28/2024 Blood pressure diastolic 80 mm Hg 11/28/2024 Height 70 in 11/28/2024 Blood pressure systolic 122 mm Hg 11/28/2024 Weight 224 lbs 11/28/2024 BMI 32.14 kg/m2 11/28/2024 Encounters Encounter Location Date Provider Diagnosis [facility] [address] [address] 07/19/2024 Provider Migration [facility] [address] [place] [address] 07/15/2024 Betty Nunu Vitamin D deficiency E55.9 ; Heart palpitations R00.2 ; Fatigue, unspecified type R53.83 ; Anxiety F41.9 and Snoring R06.83 [facility] [address] [address] 08/14/2024 Bettyphil Livingston Iron deficiency anemia, unspecified iron deficiency anemia type D50.9 ; Routine medical exam Z00.00 ; Dehydration E86.0 ; Anxiety F41.9 ; Fatigue, unspecified type R53.83 ; Elevated blood pressure reading R03.0 ; Nocturnal hypoxia G47.34 and BMI 32.0-32.9,adult Z68.32 [facility] [address] [place] [address] 08/15/2024 Betty Livingston Blood in stool K92.1 [facility] [address] [address] 11/28/2024 Betty Livingston Encounter for cervical Pap smear with pelvic exam Z01.419 ; Iron deficiency anemia, unspecified iron deficiency anemia type D50.9 ; Situational anxiety F41.8 ; Arthralgia of multiple joints M25.50 and Dizziness R42 [facility] [address] [place], [place] [address] 07/18/2024 Betty Nunu [facility] [address] [place] [address] 08/15/2024 Betty Nunu [facility] [address] [place] [address] 09/03/2024 Betty Nunu [facility] [address] [place], [place] [address] 11/06/2024 Betty Livingston Assessments Encounter Date Diagnosis (ICD Code) Assessment Notes Treatment Notes Treatment Clinical Notes Section Notes 07/15/2024 Vitamin D deficiency (ICD-10 - E55.9) 07/15/2024 Heart palpitations (ICD-10 - R00.2) EKG- NSR with nonspecific ST changes. Labs drawn to r/o anemia, e-lyte disturbance, diabetes, vit def, thyroid disease etc Holer monitor placed Symptoms occur while sleeping, concerning for BRANDON. Sleep study ordered Anxiety is exacerbating symptoms. FU in 2 weeks for annual wellness. Sooner return precautions discussed 08/14/2024 Routine medical exam (ICD-10 - Z00.00) Pap utd Tdap UTD Labs today to FU on MERRILL, dehydration 08/14/2024 Iron deficiency anemia, unspecified iron deficiency anemia type (ICD-10 - D50.9) Continue ferrous sulfate Return cards for occult blood testing x 3 If positive will refer to GI, if negative will refer to hematology. Low iron levels could be the cause of fatigue and dizziness 08/15/2024 Blood in stool (ICD-10 - K92.1) 11/28/2024 Iron deficiency anemia, unspecified iron deficiency anemia type (ICD-10 - D50.9) Will repeat iron levels and CBC. If remains deficient will consider hematology referral to discuss if iron infusions may help with her symptoms 11/28/2024 Encounter for cervical Pap smear with pelvic exam (ICD-10 - Z01.419) Rectocele on exam, otherwise normal. Specimens obtained and sent to lab for evaluation 11/28/2024 Situational anxiety (ICD-10 - F41.8) At baseline 07/15/2024 Fatigue, unspecified type (ICD-10 - R53.83) 08/14/2024 Dehydration (ICD-10 - E86.0) Increase oral fluid intake CMP today to confirm stability 08/14/2024 Anxiety (ICD-10 - F41.9) At baseline 07/15/2024 Anxiety (ICD-10 - F41.9) 11/28/2024 Arthralgia of multiple joints (ICD-10 - M25.50) Inflammatory work-up added 11/28/2024 Dizziness (ICD-10 - R42) Labs, Holter, echo unremarkable with the exception of MERRILL 08/14/2024 Fatigue, unspecified type (ICD-10 - R53.83) See above 07/15/2024 Snoring (ICD-10 - R06.83) 08/14/2024 Elevated blood pressure reading (ICD-10 - R03.0) Mild elevated today. Advised to monitor, FU if consistently > 135/85 08/14/2024 Nocturnal hypoxia (ICD-10 - G47.34) Recommend diet, exercise, weight loss and re-evaluate. 08/14/2024 BMI 32.0-32.9,adult (ICD-10 - Z68.32) See above Plan Of Treatment Pending Test Test Name Order Date Echocardiogram 06/10/2021 Physical Therapy 07/14/2021 M-Complete Blood Count Auto Diff 022 M-Erythrocyte Sedimentation Rate 022 M-Comprehensive Metabolic Panel 06/23/19 22 U-G-Qpmbugka Protein 06/22/2021 M-Thyroid Stimulating Hormone 06/22/2021 U-Wmtw-Aaodhrh Antibody Titer 06/22/2021 O-Ilql-Guybgc Citrullinated Pept M-RA Latex Turbid. 06/22/2021 M-HLA-B27 06/22/2021 CT Scan : Venogram Abdomen/Pelvis 2021 THINPREP PAP (REFL) (62364) 11/28/2024 Insurance Providers Payer Name Payer Address Payer Phone Subscriber Number Group Number Insured Name Patient Relationship to Insured Coverage Start Date Coverage End Date [facility] [address] [place] [address] [id number] Charisma Telles Self - patient is the insured Medical (General) History Medical History History ICD Code chronic back pain/herniated disc Surgical History Surgery Date(Month/Year) Tonsillectomy and Adenoidectomy wisdom teeth sinus surgery 10/2023 Colonscopy 10/29/2024 Hospitalization History Reason Date(Month/Year) Child - 09/2020
[2025-01-26] MEDS: ferumoxytoL 510 MG in 0.9 % SODIUM CHLORIDE 50 ML 268 MG IV (09:46)
[2025-01-26 09:55] VITALS: BP 129/64; PULSE 86; RESP 18; TEMP 36.4; O2SAT 100
[2025-01-26 10:15] VITALS: BP 124/68; PULSE 81
[2025-01-26] MEDS: SODIUM CHLORIDE 0.9% 10ML FLUSH SYRINGE 10 ML IV (10:15)
== END 2025-01-26 23:59 | disposition home or self-care (01) ==
LOC: INF 09:26
PROVIDERS: PCP Nurse Practitioner Family; Visit Provider Internal Medicine Medical Oncology
DX: D50.0 Iron deficiency anemia secondary to blood loss (chronic) (principal)
CPT/HCPCS: 96374; Q0138

== ENCOUNTER 2025-01-29 08:57 | Outpatient (CLI) | payer BC, SELFPAY ==
--- OUTSIDE RECORDS SUMMARY | 2024-07-19 17:30 | XMS_ITS ---
Author Organization [facility] Address [address] [facility] [address] [facility] [address] [place] [address] Care Team Providers Care Sail Finisher Hand Name Role Phone Betty Eddy Primary Care Provider [phone] Migration, Provider Unavailable Unavailable REASON FOR VISIT Multum To Medispan Conversion Encounter Medications Medication SIG (Take, Route, Frequency, Duration) Notes Start Date End Date Status Ferrous Sulfate 325 (65 Fe) MG 1 tab(s) orally once a day; Duration: 30 days 07/18/2024 Active Encounters Encounter Location Date Provider Diagnosis [facility] [address] [facility] [address] [facility] [address] [place] [address] 07/19/2024 Provider Migration Plan Of Treatment Medication Medication Name Sig Start Date Stop Date Notes Ferrous Sulfate 325 (65 Fe) MG 1 tab(s) orally once a day; Duration: 30 days 07/18/2024 Progress Notes * Charisma LARA BDOB:[birth year] (34 yo F)Acc No.[id number]:07/19/2024 Patient: Charisma MELENDEZ Provider: Raya oliveira Migration :1990 A ge:34 Y S ex:Female Date:07/19/2024 Address:[address] [place], [place] [address] [id number] Pcp:Betty Eddy Subjective: * Chief Complaints: * 1 . Multum To Medispan Conversion Encounter. * Medical History: Objective: * Vitals: Assessment: Plan: * Treatment: * * Electronic signature of Prov ider Migration on 01/29/2025 at 09:07 AM EDT Sign off status: Pending * Provider: Raya oliveira Migration Date: 0 07/19/2024 Generated for Kati feldman/Keerthi/Lowell on: 1 09:07 AM EDT
--- OUTSIDE RECORDS SUMMARY | 2025-01-29 09:07 | XMS_ITS | Encounter Summary ---
Author Organization [facility] Address [address] [place] [address] Care Team Providers Care Tube Coremaker Name Role Phone Carol Palomares APRN Primary Care Provider +1- [phone] Reason for Referral * Consultation (Routine) - Closed Specialty Diagnoses / Procedures Referred By Cindy bird Referred To Contact Gastroenterology Diagnoses Bloody stool Carol Palomares, SPECIALTY DEVELOPMENT CONSULTANT [address] [address] Phone: tel: fax: Referral ID Status Reason Start Date Expiration Date V isits Requested Visits Authorized [id number] Closed Specialty Services Required 08/02/2021 02/01/2023 1 1 Encounter Details Date Type Department Care Team (Late st Contact Info) Description 08/02/2021 Community [facility] Community Practice [address] [place] [address] Carol Palomares, SPECIALTY DEVELOPMENT CONSULTANT [address] [address] Bloody stool (Primary Dx) Social History Tobacco [...] 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
--- OUTSIDE RECORDS SUMMARY | 2025-01-29 09:07 | XMS_ITS | Encounter Summary ---
Author Organization [facility] Address [address] [place] [address] Care Team Providers Care Cost Consultant Name Role Phone Carol Palomares LALIT Primary Care Provider +1- [phone] Reason for Referral * Consultation (Routine) - Authorized Specialty Diagnoses / Procedures Referred By Cindy bird Referred To Contact Gastroenterology Diagnoses Anemia, unspecified type Blood in stool Betty Amaro APRN [address] [address] Phone: tel: fax: Referral ID Status Reason Start Date Expiration Date Visits Requested Visits Authorized [id number] Authorized Specialty Services Required 08/15/2024 02/14/2026 1 1 Encounter Details Date Type Department Care Team (Late st Contact Info) Description 08/15/2024 Community Orders Community Practice [address] [place] [address] Betty Amaro APRN [address] [place] [address] Anemia, unspecified type (Primary Dx); Blood in [...] 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
--- OUTSIDE RECORDS SUMMARY | 2025-01-29 09:07 | XMS_ITS | Clinical Summary ---
Author Organization 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 Not [...] Screening 08/19/2022 08/19/2021 [facility]-Pap Smear 12/18/2023 12/17/2020 HFT-PILLM-23 Vaccine (3 - 2024- season) 2024 01/12/2021, [...] 10:42 AM EDT) Case Report Cytology Case: [id number] Authorizing Provider: Adry Barbosa CNM Collected: 12/17/2020 1042 Ordering Location: [facility] Received: 12/21/2020 1118 First Screen: ALFREDO Valdovinos Specimen: ThinPrep Pap Test, Liquid-Based Cervical/Vaginal, CERVICAL/VAGINAL 12/27/2020 2:44 PM EDT [facility] Interpretation NEGATIVE FOR INTRAEPITHELIAL LESION OR MALIGNANCY 12/27/2020 2:44 PM EDT [facility] at 1444 EDT Specimen Adequacy Satisfactory for evaluation; endocervical/dean sformation zone component present. Slide scanned and imaged by [employer]PreCereScan Imaging System with manual review of all selected boateng. 12/27/2020 2:44 PM EDT [facility] Cervical cytology is a screening test [...] results is suggested (please call Microbiology at [phone] for results). 12/27/2020 2:44 PM EDT [facility] Menstrual Status Post- 021 2:44 PM EDT [facility] Contraceptive History Not Applicable 12/27/2020 2:44 PM EDT [facility] Last Menstrual Period 11/16/2020 12/27/2020 2:44 PM EDT [facility] Screening Type Routine Screen 2020 2:44 PM EDT [facility] High Risk? No 12/27/2020 2:44 PM EDT [facility] HPV Testing Requested? Request HPV Testing Regardless of Pap Test Findings 12/27/2020 2:44 PM EDT [facility] Previous Cancer History No 12/27/2020 2:44 PM EDT [facility] Swab Vaginal and cervical cytologic material / Unknown 12/17/2020 10:42 AM EDT 12/21/2020 11:18 AM EDT Adry Barbosa APRN, [facility] CYTOLOGY ORDERABLE S Final Result Performing Organization Address City/[facility]/ZIP Co de Phone Number [facility] [address] [place] [address] * HIV 1 & 2 Antibody/Antigen Screen (2020 12:36 PM EDT) Pathologist [facility] HIV 1 Result NONREACTIVE Screening for HIV [...] Patient has decision-making capacity? Yes Care Teams Horse Rider Relationship Specialty Start Date End Date Carol Palomares APRN [address] [place] [address] PCP - General 06/14/21
--- OUTSIDE RECORDS SUMMARY | 2025-01-29 09:08 | XMS_ITS | Patient Health Record ---
Author Organization [facility] Address [address] [place] [address] [place] [address] Care Team Providers Care Bindery Machine Feeder Offbearer Name Role Phone Anthonyclara Betty Primary Care Provider Migration, Provider Unavailable Unavailable Allergies No Known Allergies Results Component Value Reference Range Notes IRON, TIBC AND FERRITIN PANE L (5616) Reviewed date:08/15/2024 12:51:22 PM Interpretation: Performing Lab:SANG, [facility] [address], Home-AccountYleuNW[address] Mina Cortes Notes/Report: NON-FASTING; NON-FASTING; NON-FASTING IRON, TOTAL 39 40-190 mcg/dL IRON BINDING CAPACITY 417 250-450 mc g/dL (calc) % SATURATION 9 16-45 % (calc) FERRITIN 12 16-154 ng/mL COMPREHENSIVE METABOLIC PANE L (81958) Reviewed date:07/18/2024 02:50:18 PM Interpretation: Performing Lab:SANG, [employer] [address], Home-AccountYwowRM[address] Mina Cortes Notes/Report: NON-FASTING; NON-FASTING; NON-FASTING; NON-FASTING; [...] 16 10-30 U/L ALT 13 6-29 U/L MAGNESIUM (622) Reviewed date:07/18/2024 02:50:18 PM Interpretation: Performing Lab:SANG [employer]-[address], Home-AccountLrekJR[address] Mina Cortes Notes/Report: NON-FASTING; NON-FASTING; NON-FASTING; NON-FASTING; NON-FAST MAGNESIUM 2.2 1.5-2.5 mg/dL CBC (INCLUDES DIFF/PLT) (639 9) Reviewed date:07/17/2024 01:29:11 PM Interpretation: Performing Lab:SANG [employer] [facility], Biotie TherapiesFkxvVM[address] Mina Cortes Notes/Report: NON-FASTING; NON-FASTING; NON-FASTING; NON-FASTING; [...] MPV 11.6 7.5-12.5 fL ABSOLUTE NEUTROPHILS 3970 0513-2596 cells/uL ABSOLUTE LYMPHOCYTES 5248 548-8208 cells/uL ABSOLUTE MONOCYTES 426 200-950 cells/uL ABSOLUTE EOSINOPHILS 123 15-500 cells/uL ABSOLUTE BASOPHILS 22 0-200 cells/uL NEUTROPHILS 70.9 LYMPHOCYTES 18.9 MONOCYTES 7.6 EOSINOPHILS 2.2 BASOPHILS 0.4 CBC (INCLUDES DIFF/PLT) (639 9) Reviewed date:08/15/2024 12:51:28 PM Interpretation: Performing Lab:SANG, [employer] [facility] [address], [place] OealHH[address] Mina Cortes Notes/Report: NON-FASTING; NON-FASTING; NON-FASTING WHITE [...] MPV 11.4 7.5-12.5 fL ABSOLUTE NEUTROPHILS 4677 1577-4065 cells/uL ABSOLUTE LYMPHOCYTES 3700 663-6322 cells/uL ABSOLUTE MONOCYTES 268 200-950 cells/uL ABSOLUTE EOSINOPHILS 201 15-500 cells/uL ABSOLUTE BASOPHILS 27 0-200 cells/uL NEUTROPHILS 69.8 LYMPHOCYTES 22.8 MONOCYTES 4.0 EOSINOPHILS 3.0 BASOPHILS 0.4 VITAMIN B12 (927) Reviewed date:07/17/2024 01:29:11 PM Interpretation: Performing Lab:SANG, [facility] [address], Home-AccountYiroDH[address] Mina Cortes Notes/Report: NON-FASTING; NON-FASTING; NON-FASTING; NON-FASTING; NON-FAST VITAMIN B12 934 410-9432 pg/mL Please Note: Although the reference range for vitamin B12 is 200-1100 pg/mL, it has been reported that between 5 and 10% of patients with values between 200 and 400 pg/mL may experience neuropsychiatric and hematologic abnormalities due to occult B12 deficiency; less than 1% of patients with values above 400 pg/mL will have symptoms. TSH (899) Reviewed date:07/17/2024 01:29:11 PM Interpretation: Performing Lab:SANG [facility] [facility] SolutionsSaint [facility]ab[facility], [facility] Medical CenterCunjTS[address] Mina Cortes Notes/Report: NON-FASTING; NON-FASTING; NON-FASTING; NON-FASTING; NON-FAST TSH 2.37 Reference Range > or = 20 Years 0.40-4.50 Ranges First trimester 0.26-2.66 Second trimester 0.55-2.73 Third trimester 0.43-2.91 VITAMIN D,25-OH,TOTAL,IA (17 306) Reviewed date:07/17/2024 01:29:11 PM Interpretation: Performing Lab:SANG [employer] [address]fr[address] [facility], [place] LghhLD[address] Mina Cortes Notes/Report: NON-FASTING; NON-FASTING; NON-FASTING; NON-FASTING; [...] D, (D2,D3), LC/MS/MS is recommended: order code 62756 (patients >2yrs). See Note 1 Note 1 For additional information, please refer to http://education.Yedda/faq/LPD139 (This link is being provided for informational/ educational purposes only.) THINPREP-TIS (REFL) (75754) Reviewed date:12/03/2024 12:18:40 PM Interpretation: Performing Lab:Debbie TOURE-Evon Mustafa[address] Mina Cortes Notes/Report: NON-FASTING CLINICAL INFORMATION: Normal exam LMP: NONE GIVEN PREV. PAP: NONE GIVEN PREV. BX: NONE GIVEN SOURCE: Vagina, Cervix STATEMENT OF ADEQUACY: Satisfactory for evaluation. Endocervical/transformati on zone component absent. Age and/or menstrual status not provided INTERPRETATION/RESULT: Cytology Results: Negative for intraepithelial lesion or malignancy. COMMENT: This Pap test has been evaluated with the Phylogyp(R) Imaging System. CRM ARCHITECT: ALFREDO SMITH(ASCP) CT Screening location: [address] [address] CLIA:[id number] COMMENT EXPLANATORY NOTE: The Pap is a screening test for cervical cancer. It is not a diagnostic test and is subject to false negative and false positive results. It is most reliable when a satisfactory sample, regularly obtained, is submitted with relevant clinical findings and history, and when the Pap result is evaluated along with historic and current clinical information. occult blood Reviewed date:08/15/2024 12:51:17 PM Interpretation:Positive Performing Lab: Notes/Report: Positive Holter Monitor, 48 hour Reviewed date:07/30/2024 10:06:15 AM Interpretation: Performing Lab: Notes/Report: MISAEL SCR, IFA, W/REFL TITER/P ATTERN/RHEUMATOID ARTHRITIS PANEL 1 (35209) Reviewed date:12/03/2024 12:18:52 PM Interpretation: Performing Lab:CB, [facility] Vfxz5426 [facility], [facility] CenterQyupXZ[address] Mina Cortes Notes/Report: NON-FASTING; NON-FASTING; NON-FASTING; NON-FASTING; [...] Negative International Consensus on MISAEL Patterns (https://doi.org/10.1515/ tski-2079-3353) For additional information, please refer to http://education.Yedda/faq/ULF848 (This link is being provided for informational/ educational purposes only.) RHEUMATOID FACTOR <10 <14 IU/mL CYCLIC CITRULLINATED PEPTIDE (CCP) AB (IGG) <16 Reference Range Negative: <20 Weak Positive: 20-39 Moderate Positive: 40-59 Strong Positive: >59 INTERPRETATION There is no serologic evidence for rheumatoid arthritis. The RF and CCP tests each have a sensitivity for established rheumatoid arthritis of approximately 65-70%. IRON, TIBC AND FERRITIN PANE L (5616) Reviewed date:07/18/2024 02:50:18 PM Interpretation: Performing Lab:SANG [facility] [employer] Pro.comMaple Grove HospitalRwraRG[address] Mina Cortes Notes/Report: NON-FASTING; NON-FASTING; NON-FASTING; NON-FASTING; NON-FAST IRON, TOTAL 20 40-190 mcg/dL IRON BINDING CAPACITY 444 250-450 mc g/dL (calc) % SATURATION 5 16-45 % (calc) FERRITIN 5 16-154 ng/mL COMPREHENSIVE METABOLIC PANE L (51786) Reviewed date:08/15/2024 12:51:34 PM Interpretation: Performing Lab:SANG [employer] [facility] Zcop8197 InContext SolutionsChester County Hospital[address] Mina Cortes Notes/Report: NON-FASTING; NON-FASTING; NON-FASTING GLUCOSE 88 65-99 mg/dL Fasting reference interval UREA NITROGEN [...] 15 10-30 U/L ALT 14 6-29 U/L COMPREHENSIVE METABOLIC PANE L (81991) Reviewed date:12/03/2024 12:25:21 PM Interpretation: Performing Lab:SANG [facility] Institutee1355 FSIteChester County Hospital[address] Mina Cortes Notes/Report: NON-FASTING; NON-FASTING; NON-FASTING; NON-FASTING; [...] 12 10-30 U/L ALT 14 6-29 U/L IRON AND TOTAL IRON BINDING CAPACITY (7573) Reviewed date:12/03/2024 12:18:45 PM Interpretation: Performing Lab:SANG [facility] ITNorthfield City Hospitale1355 In[facility] SolutionsSaint [facility], [facility] CenterBvuzLB[address] Mnia Cortes Notes/Report: NON-FASTING; NON-FASTING; NON-FASTING; NON-FASTING; NON-FAST IRON, TOTAL 35 40-190 mcg/dL IRON BINDING CAPACITY 402 250-450 mc g/dL (calc) % SATURATION 9 16-45 % (calc) CBC (INCLUDES DIFF/PLT) (639 9) Reviewed date:12/03/2024 12:23:13 PM Interpretation: Performing Lab:SANG [employer]basno [address], [facility] Medical CenterGaqtSZ[address] Mina Cortes Notes/Report: NON-FASTING; NON-FASTING; NON-FASTING; NON-FASTING; [...] parameters and the patient's clinical condition. RDW 14.5 11.0-15.0 % PLATELET COUNT 283 140-400 Thousand/uL MPV 11.0 7.5-12.5 fL ABSOLUTE NEUTROPHILS 4134 5091-0504 cells/uL ABSOLUTE LYMPHOCYTES 7778 695-9190 cells/uL ABSOLUTE MONOCYTES 339 200-950 cells/uL ABSOLUTE EOSINOPHILS 147 15-500 cells/uL ABSOLUTE BASOPHILS 32 0-200 cells/uL NEUTROPHILS 64.6 LYMPHOCYTES 27.3 MONOCYTES 5.3 EOSINOPHILS 2.3 BASOPHILS 0.5 SED RATE BY MODIFIED RONAN MORE (809) Reviewed date:12/03/2024 12:18:35 PM Interpretation: Performing Lab:SANG [employer] [address], [facility] CenterKqfkKJ[address] Mina Cortes Notes/Report: NON-FASTING; NON-FASTING; NON-FASTING; NON-FASTING; NON-FAST SED RATE BY MODIFIED BILL 17 < OR = 20 mm/h C-REACTIVE PROTEIN (4420) Reviewed date:12/03/2024 12:26:22 PM Interpretation: Performing Lab:SANG [employer]no [address], [facility] CenterThrjDU[address] Mina Cortes Notes/Report: NON-FASTING; NON-FASTING; NON-FASTING; NON-FASTING; NON-FAST C-REACTIVE PROTEIN 8.9 <8.0 mg/L TSH (899) Reviewed date:12/03/2024 12:26:28 PM Interpretation: Performing Lab:SANG [employer] Objn4738 [facility] CenterPopulation Genetics TechnologiesRed Lake Indian [facility] RxkiZQ[address] Mina Cortes Notes/Report: NON-FASTING; NON-FASTING; NON-FASTING; NON-FASTING; NON-FAST TSH 1.41 Reference Range > or = 20 Years 0.40-4.50 Ranges First trimester 0.26-2.66 Second trimester 0.55-2.73 Third trimester 0.43-2.91 TEST AUTHORIZATION Reviewed date:07/18/2024 02:50:18 PM Interpretation: Performing Lab:SANG [facility] Lybt2994 [facility] CentermiriamRed Lake Indian [facility] OracJQ[address] Mina Cortes Notes/Report: NON-FASTING; NON-FASTING; NON-FASTING; NON-FASTING; NON-FAST TEST NAME: IRON, TIBC AND FERRITIN PANEL TEST CODE: 5616SB CLIENT CONTACT: BETTY LIVINGSTON REPORT ALWAYS MESSAGE SIGNATURE The laboratory testing on this patient was verbally requested or confirmed by the ordering physician or his or her authorized client representative after contact with an employee of [employer]. Federal regulations require that we maintain on file written authorization for all laboratory testing. Accordingly we are asking that the ordering physician or his or her authorized client representative sign a copy of this report and promptly return it to the client advocate. Signature: COMMENT Please fax this signed form to [phone]. Please do not attempt to return this document by other methods. Documents will not be viewed by a client representative. Please do not use this fax number for other service requests. Reason For Referral Reason Home sleep study Diagnosis 1 Snoring (R06.83) Referral Organization [facility] DESMOND Referring Provider First Name Betty Referring Provider Last Name Nunu Referring Provider [facility]ity [facility] Referred Organization [facility] Referred Address [address] [place] [address],[address],[place] Referred Provider Specialty Sleep Study General Notes Maggy Gonzalez 2024 02:39:33 PM >sent to Kayla Borrero to edgarert at [facility] Referral Priority Routine Reason Referral to Gastro- positive occult blood Referral Organization [facility] Referring Provider First Name Betty Referring Provider Last Name Nunu Referring Provider [facility] ctice Referred Organization [facility] Referred Address [address] [place] [address] ,[place], [place],[address],[place] Referred Provider Specialty Gastroentero logy General Notes Maggy Gonzalez 2024 10:57:54 AM >sent to [facility] and Dr. Garnica, Maggy Gonzalez 09/15/2024 03:22:46 PM >[facility] Referral Priority Routine Reason Dr. Sly MOMIN Referral Organization [facility] Referring Provider First Name Betty Referring Provider Last Name Nunu Referring Provider [facility] ctice Referred Organization [facility] Referred Address [address],[address],[place] Referred Provider Specialty Hematology/O ncology General Notes Maggy Gonzalez 2024 12:30:05 PM >Sent to [facility] Dr. Heart Referral Priority Routine Medications [...] Status W/U Status Risk Notes Problem Anxiety (01193630) Anxiety (F41.9) Active confi rmed Problem Vitamin D deficiency (75173398) Vitamin D deficiency (E55.9) Active confirmed Problem Psoriasis (8147875) Psoriasis (L40.9) Active confirmed Problem Body mass index 30.00 to 34.99 (899807361389421) BMI 31.0-31.9,adult (Z68.31) Active confirmed Problem BMI 30+ - obesity (185640657) BMI 32.0-32.9,adult (Z68.32) Active confirmed Problem Idiopathic sleep related non-obstructive alveolar hypoventilation (468970048) Nocturnal hypoxia (G47.34) Active confirmed Problem Iron deficiency anemia (79717412) Iron deficiency anemia, unspecified iron deficiency anemia type (D50.9) Active confirmed Problem Degeneration of lumbar intervertebral disc (06059719) Lumbar degenerative disc disease (M51.36) Active confirmed Problem Anxiety (58237941) Situational anxiety (F41.8) Active confirmed Problem Pain due to varicose veins of lower extremity (839896577) Varicose veins of both lower extremities with pain (I83.813) Active confirmed Vital Signs Heart Rate 82 /min 11/28/2024 Temperature 98 degrees Fahrenheit 11/28/2024 Blood pressure diastolic 80 mm Hg 11/28/2024 Height 70 in 11/28/2024 Blood pressure systolic 122 mm Hg 11/28/2024 Weight 224 lbs 11/28/2024 BMI 32.14 kg/m2 11/28/2024 Encounters Encounter Location Date Provider Diagnosis [facility] [address] [address] 07/19/2024 Provider Migration [facility] [address] [address] 07/15/2024 Betty Nunu Vitamin D deficiency E55.9 ; Heart palpitations R00.2 ; Fatigue, unspecified type R53.83 ; Anxiety F41.9 and Snoring R06.83 [facility] [address] [address] 08/14/2024 Bettyphil Livingston Iron deficiency anemia, unspecified iron deficiency anemia type D50.9 ; Routine medical exam Z00.00 ; Dehydration E86.0 ; Anxiety F41.9 ; Fatigue, unspecified type R53.83 ; Elevated blood pressure reading R03.0 ; Nocturnal hypoxia G47.34 and BMI 32.0-32.9,adult Z68.32 [facility] [address] [place] [address] 08/15/2024 Betty Livingston Blood in stool K92.1 [facility] [address] [address] 11/28/2024 Betty Livingston Encounter for cervical Pap smear with pelvic exam Z01.419 ; Iron deficiency anemia, unspecified iron deficiency anemia type D50.9 ; Situational anxiety F41.8 ; Arthralgia of multiple joints M25.50 and Dizziness R42 [facility] [address] [place], [place] [address] 07/18/2024 Betty Nunu [facility] [address] [place] [address] 08/15/2024 Betty Nunu [facility] [address] [place] [address] 09/03/2024 Betty Nunu [facility] [address] [place], [place] [address] 11/06/2024 Betty Livingston Assessments Encounter Date Diagnosis [...] Therapy 07/14/2021 M-Complete Blood Count Auto Diff M-Erythrocyte Sedimentation Rate M-Comprehensive Metabolic Panel 06/23/19 22 X-V-Wpagnvnl Protein 06/22/2021 M-Thyroid Stimulating Hormone 06/22/2021 E-Knjb-Svwewbg Antibody Titer 06/22/2021 V-Veiy-Kgwsmu Citrullinated Pept M-RA Latex Turbid. 06/22/2021 M-HLA-B27 06/22/2021 CT Scan : Venogram Abdomen/Pelvis 2021 THINPREP PAP (REFL) (58896) 11/28/2024 Insurance Providers Payer Name Payer Address Payer Phone Subscriber Number Group Number Insured Name Patient Relationship to Insured Coverage Start Date Coverage End Date [facility] [address] [place] [address] [phone] [id number] Charisma Telles Self - patient is the insured Medical (General) History Medical History History ICD Code chronic back pain/herniated disc Surgical History Surgery Date(Month/Year) Tonsillectomy and Adenoidectomy wisdom teeth sinus surgery 10/2023 Colonscopy 10/29/2024 Hospitalization History Reason Date(Month/Year) Child - 09/2020
[2025-01-29] MEDS: ferumoxytoL 510 MG in 0.9 % SODIUM CHLORIDE 50 ML 268 MG IV (09:22)
[2025-01-29 09:25] VITALS: BP 114/68; PULSE 70; RESP 18; TEMP 36.6; O2SAT 99
[2025-01-29 09:40] VITALS: BP 119/70; PULSE 72
[2025-01-29] MEDS: SODIUM CHLORIDE 0.9% 10ML FLUSH SYRINGE 10 ML IV (10:31)
== END 2025-01-29 23:59 | disposition home or self-care (01) ==
LOC: INF 08:59
PROVIDERS: PCP Nurse Practitioner Family; Visit Provider Internal Medicine Medical Oncology
DX: D50.9 Iron deficiency anemia, unspecified (principal)
CPT/HCPCS: 96374; Q0138